=== PATIENT | female | born 1980 | race Two or more races ===

== ENCOUNTER 2023-02-10 05:34 | Day surgery (SDC) | payer OTHER ==
[2023-02-03 10:23] LABS: BASOPHILS % (AUTO) 0.5 % (0-1); EOSINOPHILS # (AUTO) 0.1 X10'3 (0-0.9); EOSINOPHILS % (AUTO) 1.2 % (0-6); LYMPHOCYTES # (AUTO) 2.2 X10'3 (1.1-4.8); MEAN CORPUSCULAR HEMOGLOBIN 23.2 PG (27.0-31.0); MEAN CORPUSCULAR HGB CONC 31.5 g/dL (33.0-36.5); MEAN CORPUSCULAR VOLUME 73.7 FL (78-98); MEAN PLATELET VOLUME 8.1 FL (7.4-10.4); MONOCYTES # (AUTO) 0.4 X10'3 (0-0.9); MONOCYTES % (AUTO) 7.5 % (2-12); NEUTROPHILS # (AUTO) 2.8 X10'3 (1.8-7.7); NEUTROPHILS % (AUTO) 50.8 % (42-75); PRE OP HEMATOCRIT 37.5 % (35.0-45.0); PRE OP HEMOGLOBIN 11.8 g/dL (12.0-16.0); PRE OP PLATELET COUNT 332 X10'3 (140-440); PRE OP WHITE BLOOD COUNT 5.4 10'3 (4.8-10.8); RED BLOOD COUNT 5.09 X10'6 (4.20-5.60); RED CELL DISTRIBUTION WIDTH 18.5 % (11.5-14.5)
[2023-02-03 10:38] LABS: ALBUMIN 3.5 G/DL (3.4-5.0); ALBUMIN/GLOBULIN RATIO 0.9 (1.1-1.5); ALKALINE PHOSPHATASE 86 IU/L (46-116); BETA HCG,QUANTITATIVE < 1.0 mIU/ml; BLOOD UREA NITROGEN 6 MG/DL (7-18); CHLORIDE 106 MMOL/L (99-107); CREATININE 0.67 MG/DL (0.40-0.90); PRE OP ALT 16 U/L (30-65); PRE OP ANION GAP 4 (8-16); PRE OP AST 19 U/L (10-37); PRE OP BILIRUB, TOTAL 0.6 MG/DL (0.0-1.0); PRE OP GLUCOSE 92 MG/DL (70-104); PRE OP POTASSIUM 4.4 MMOL/L (3.4-5.1); PRE OP SODIUM 138 MMOL/L (135-145); TOTAL CARBON DIOXIDE 28.4 MMOL/L (24-32); TOTAL PROTEIN 7.6 G/DL (6.4-8.2); eGFR > 90 ML/MIN
[~2023-02-10] VITALS: Ht 154.9 cm; Wt 75.6 kg
[2023-02-10] VITALS (22 sets, daily range): BP systolic 96–121; BP diastolic 54–79; PULSE 61–99; RESP 7–21; TEMP 97.9; O2SAT 89–100
[~2023-02-10 05:34] MED LIST: NO HOME MEDS; cefazolin 2gm/D5W 100mL 100 ML IV ONE; famotidine 20mg tablet PO ONE; ringers solution, lacted 1,000 ML IV SCH
[2023-02-10] MEDS ORDERED: LIDOcaine 1% (10mg/ml) 2ml vial ONE (06:33)
[2023-02-10] MEDS ORDERED: BUPIVAcaine/PF 2.5 mg/ml (0.25%) 30ml vial ONE ×2 (06:41→07:05)
[2023-02-10] MEDS ORDERED: LIDOcaine 1% 30ml preserv. free vial ONE (06:41)
[2023-02-10] MEDS ORDERED: midazolam 1 mg/ML 2ml injection ONE (07:24)
[2023-02-10] MEDS ORDERED: sevoflurane 250ml liquid IH ONE (07:32)
[2023-02-10] MEDS ORDERED: rocuronium 10mg/ml inj IV ONE (07:32)
[2023-02-10] MEDS ORDERED: BUPIVACAINE liposomal/PF 13.3 MG/ML vial IM ONE (07:48)
[2023-02-10] MEDS ORDERED: morphine 4 MG/ML inj SYRINge IV PRN (07:50)
[2023-02-10] MEDS ORDERED: hydrALAZINE 20mg/ml inj. IV PRN (07:50)
[2023-02-10] MEDS ORDERED: morphine 2 MG/ML inj. syringe IV PRN (07:50)
[2023-02-10] MEDS ORDERED: ringers solution, lacted 1,000 ML IV SCH (07:50)
[2023-02-10] MEDS ORDERED: meperidine/PF 25mg/ml syringe IV PRN ×3 (07:50)
[2023-02-10] MEDS ORDERED: proCHLORperazine 10 MG/2 ml inj IV PRN (07:50)
[2023-02-10] MEDS ORDERED: ondansetron/PF 4mg/2ml inj IV PRN (07:50)
[2023-02-10] MEDS ORDERED: labetalol 20mg/4ml (5mg/ml) syringe IV PRN (07:50)
[2023-02-10] MEDS ORDERED: acetaminophen 1,000mg/100ml IV 100 ML IV PRN (07:50)
[2023-02-10] MEDS ORDERED: dexamethasone sod phosphate 4mg/ml inj. ONE (08:03)
[2023-02-10] MEDS ORDERED: propofol inj 20 ML IV ONE (08:03)
[2023-02-10] MEDS ORDERED: fentaNYL /PF 50mcg/ml 5ml ampule ONE (08:03)
[2023-02-10] MEDS ORDERED: ondansetron/PF 4mg/2ml inj ONE (08:03)
[2023-02-10] MEDS ORDERED: LIDOcaine 2% (20mg/ml) 5ml vial ONE (08:03)
[2023-02-10] MEDS ORDERED: glycopyrrolate 0.2mg/ml inj ONE (08:37)
[2023-02-10] MEDS ORDERED: neostigmine methylsulfate 1 MG/ML 10ml vial ONE (08:37)
--- NOTE | 2023-02-10 09:02 | NUR ---
Received from OR via [facility] TO [facility], accompanied by Anesthesiologist GEENA and report given by Anesthesiolgist. PT PRESENTS ON 8L VIA MASK WITH ORAL AIRWAY IN PLACE. VSS, NO S/S OF DISTRESS NOTED. RESPONSIVE TO TOUCH. ADB LAP SITES CDI COVERED WITH ABD BINDER. LR RUNNING THRU PIV. WILL CONTINUE TO ASSESS
--- NOTE | 2023-02-10 09:05 | NUR ---
REY MUNSON APPLIED. Addendum: 02/10/23 at 1047 by Shannon De Leon RN PER PT REQUEST SHE FELT COLD
[2023-02-10] MEDS ORDERED: oxyCODONE/APAP 5-325mg tablet PO PRN (09:20)
--- NOTE | 2023-02-10 10:30 | NUR ---
PT BECAME DIZZY AND PALE WHILE GETTING DRESSED AND TRANSFERRING TO W/C. 2 PERSON ASSIST BACK TO [facility] AND HOOKED UP TO BP AND O2. BP 99/54. WILL TRANSFER BACK TO BED ONCE PATIENT IS LESS DIZZY.
--- NOTE | 2023-02-10 10:35 | NUR ---
2 PERSON TRANSFER BACK TO [facility]. PTS BP IS BETTER. WILL CONTINUE TO ASSESS
--- NOTE | 2023-02-10 11:40 | NUR ---
MD SEAY AWARE OF DIZZINESS AND PALENESS EPISODE: NO NEW ORDERS.
--- NOTE | 2023-02-10 11:50 | NUR ---
MD COOK AWARE OF EPISODE: PATIENT IS STABLE AT THIS TIME. NO NEW ORDERS REC'D
--- NOTE | 2023-02-10 12:22 | NUR ---
Patient ready for d/c per MD orders. All d/c ppwk was rev'd with patient. All questions, comments, concerns were answered at this time. Pt requested her dtr Emelia at bedside for translation, she declined out champagne maker ipad. Educated on the importance having supervision for the next 24 hrs, no bearing down, constipation, remembering to breathe. Patient was able to ambulate safely with no loss of balance or dizziness with minimal assistance to wheelchair and was able to urinate. Abd lap sites with Bandaids are CDI, abd binder on. Patient was wheeled out in W/C to private vehicle where family was waiting. Transferred to vehicle without incident.
== END 2023-02-10 12:22 | disposition home or self-care (01) ==
LOC: PAS 05:34
PROVIDERS: ATTEND Surgery
DX: K42.9 Umbilical hernia without obstruction or gangrene (principal); Z98.890 Other specified postprocedural states; Z79.899 Other long term (current) drug therapy
CPT/HCPCS: 36415; 49613; 64488; 80053; 82948; 84702; 85025; C1781; C9290; J0690; J1100; J2250; J2405; J2704; J2710; J3010; J3490; J7030; J7120; Z7506; Z7508; Z7512; A4215; A4618